=== PATIENT | male | born 1965 | race Caucasian/White ===

== ENCOUNTER 2020-06-28 06:46 | Outpatient (CLI) | payer OTHER, SELFPAY ==
[2020-06-28 07:50] LABS: SARS-CoV-2 Ag Negative (Negative)
== END 2020-06-28 06:47 | disposition home or self-care (01) ==
LOC: CHSLAB 06:51
PROVIDERS: PCP Family Medicine; Visit Provider Family Medicine
DX: Z20.822 Contact with and (suspected) exposure to COVID-19 (principal)
CPT/HCPCS: 87426; C9803

== ENCOUNTER 2020-06-29 15:58 | Outpatient (CLI) | payer OTHER, SELFPAY ==
[2020-07-01 18:21] LABS: SARS-CoV-2 RNA PCR Negative
== END 2020-06-29 15:59 | disposition home or self-care (01) ==
LOC: CHSLAB 16:01
PROVIDERS: PCP Family Medicine; Visit Provider Family Medicine
DX: Z20.822 Contact with and (suspected) exposure to COVID-19 (principal)
CPT/HCPCS: C9803; U0003; U0005

== ENCOUNTER 2024-06-08 10:30 | Outpatient (RCR) | payer OTHER, SELFPAY ==
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
--- NOTE | 2024-03-16 15:20 | OPREHPOC ---
Outpatient Therapy Plan of Care This is a Multidisciplinary Plan of Care that may contain components documented by all disciplines (PT, OT, and ST.) OT Problem 1 OT Problem #1 Knowledge Deficit OT Goal 1 Goal / Goal Update Patient to be independent with instructed materials. Target Visit 10 OT Problem 2 OT Problem #2 Pain OT Goal 1 Goal / Goal Update Patient to be independent with non-medication pain mgmt - ROM - heat/ice Target Visit 10 OT Problem 3 OT Problem #3 Impaired Range of Motion OT Goal 1 Goal / Goal Update Patient to increase finger wrist ROM: - hook fist to less than 2 cm gap between finger tips and DPC - full fist to be able to touch finger tips to the palm with no gap Target Visit 10
--- NOTE | 2024-03-23 14:38 | PCOTNOTE ---
Patient did not show up for scheduled appointment this date. Called patient who reports he didn't know what day it was today. Reminded him of his next appointment.
--- NOTE | 2024-04-11 08:56 | PCOTNOTE ---
Patient called and cancelled his appointment on due to having surgery on Wednesday.
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
== END 2024-06-14 23:59 | disposition home or self-care (01) ==
LOC: ANHGOSHOT 10:30
PROVIDERS: PCP Family Medicine
DX: S56.12 Laceration of flexor muscle, fascia and tendon of other and unspecified finger at forearm level (principal)
CPT/HCPCS: 97110; 97112; 97167